=== PATIENT | male | born 1945 | race Two or more races ===

== ENCOUNTER 2024-12-18 20:35 | Emergency (ER) | payer OTHER ==
[~2024-12-18] VITALS: Ht 172.7 cm; Wt 92.0 kg
[2024-12-18] MEDS ORDERED: NITROGLYCERIN 0.4 MG SL TAB SL ONE (20:45)
[2024-12-18] MEDS ORDERED: ASPirin 325 MG TAB PO ONE (20:45)
--- NOTE | 2024-12-18 20:45 | ED.PDOC ---
HPI Comments HPI: 79 y/o M presents to the ED with CC of chest pain. Patient states that he has been experiencing intermittent sub-sternal chest pain x1 day with associated symptoms of shortness of breath. Patient describes chest pain to be tight and pressure like. Patient denies any social history. Patient denies fever, headache, numbness, tingling, or N/V/D. No new symptoms or modifying factors at this time. Initial Vitals: Temp:97.6 BP:167/56 HR:68 RR:16 O2 Sat.:95% Past Medical History: HTN, HLD, DM, CABG Past Surgical History: CABG Social History: Denies smoking, ETOH, and drug use Medication: Denies Allergies: NKDA NELSON HPI: Poor Historian. Past Medcial History: Past Surgical History: REVIEW OF SYSTEMS: CONSTITUTIONAL: Denies acute: fever, diaphoresis, chills, generalized weakness. HEAD: Denies acute: headache, photophobia Eyes: Denies acute: Double vision, vision loss, eye pain, eye discharge. EARS: Denies acute: tinnitus, hearing loss, ear discharge, ear pain, THROAT: Denies acute: sore throat, swelling, difficulty swallowing , pain with swallowing, change in voice. NECK: Denies acute: neck pain, neck swelling, stiff neck. HEART: Denies acute : palpitations, LUNGS: Denies acute: , wheezing, cough, hemoptysis ABDOMEN: Denies acute: abdominal pain, Nausea, Vomiting, diarrhea, melena , hematemesis, hematochezia SKIN: Denies acute: rash, redness, lesions, itchiness. EXTREMITIES: Denies acute: calf pain, numbness, tingling, weakness, denies pain in extremity. Denies acute: Low back pain. Neuro: Denies acute: focal neurological deficit, motor or sensory focal neurological deficit, tremors, seizure like activity, confusion, dizziness, change in mental status, loss of bowel or bladder function, cauda equina like symptoms. : Denies acute: dysuria, hematuria, flank pain, increase in urinary frequency. PSYCH: Denies acute: hallucination, suicidal ideation, homicidal ideation. PHYSICAL EXAM: General: no acute distress, awake and alert. Head: normocephalic, atraumatic. Neck: supple, trachea is midline, no swelling. Throat: Normal phonation. Eyes:, no erythema, no purulent discharge, no proptosis, no icterus. Heart: regular rate, regular rhythm, no significant murmur appreciated. Lungs: no apparent respiratory distress, Able to speak in full sentences. No wheezing, no rhonchi, no crackles. No stridors Clear to auscultation bilaterally. Abdomen: non tender to palpation, non distended, soft, no guarding, no rebound, + bowel sounds. Neuro: Awake, Alert, oriented to name, self, situation, follows commands GCS=15. Speech is normal. Skin: no petechia, no purpura, no cyanosis, slightly-pale, not jaundice. Lower extremities: -1/4- Pitting edema no deformity, no focal swelling, no calf TTP. Makes eye contact. moves all four extremities. Face: no apparent facial droop. Ambulating in the ED independently. - Chief Complaint: Chest Pain Time Seen by MD: 20:43 Allergies: Coded Allergies: Codeine (Verified Allergy, Unknown, 12/18/24) Information Source: Patient Mode of Arrival: Ambulatory Severity: Moderate Timing: Days Duration: Since onset Prehospital treatment: Other (ASPRIN) Location: Substernal Quality: Tightness Cardiac Risk Factors: None PE Risk Factors: None History of: None Associated Signs and Symptoms: None Was a procedure done? Was a procedure done?: No X-Ray, Labs, Meds, VS Vital Signs Date Time Temp Pulse Resp B/P (MAP) Pulse Ox O2 Delivery O2 Flow Rate FiO2 12/18/24 21:46 61 12/18/24 20:47 97.6 68 16 167/56 (93) 95 12/18/24 20:40 67 Lab Test 12/18/24 22:00 12/18/24 21:39 12/18/24 20:42 Range/Units Lactic Acid Level Pending Troponin I High Sensitivity Pending 9 </=54 ng/L White Blood Count 26.2 H 4.4-10.8 10^3/uL Red Blood Count 4.71 4.5-5.90 10^6/uL Hemoglobin 12.7 L 13.5-17.5 g/dL Hematocrit 38.9 L 41.0-53.0 % Mean Corpuscular Volume 82.6 80.0-100.0 fL Mean Corpuscular Hemoglobin 27.0 L 28.0-32.0 pg Mean Corpuscular Hemoglobin Concent 32.6 32.0-36.0 g/dL Red Cell Distribution Width 14.0 11.8-14.3 % Platelet Count 312 140-450 10^3/uL Mean Platelet Volume 7.5 6.9-10.8 fL Neutrophils (%) (Auto) 37.0-80.0 % Lymphocytes (%) (Auto) 10.0-50.0 % Monocytes (%) (Auto) 0.0-12.0 % Basophils (%) (Auto) 0.0-2.0 % Neutrophils # (Auto) 1.6-8.6 10 ^3/uL Lymphocytes # (Auto) 0.4-5.4 10 ^3/uL Monocytes # (Auto) 0-1.3 10 ^3/uL Differential Total Cells Counted 100.0 100 Neutrophils % (Manual) 70 37.0-80.0 Band Neutrophils % (Manual) 22 Lymphocytes % (Manual) 3 L 10.0-50.0 Monocytes % (Manual) 2 0-12 Eosinophils % (Manual) 1 0-7 Basophils % (Manual) 0 0.0-2.0 Metamyelocytes % (manual) 2 Myelocytes % (Manual) 0 Promyelocytes % (Manual) 0 Blast Cells % (Manual) 0 Reactive Lymphocytes 0 Platelet Estimate Adequate Sodium Level 135 L 136-145 mmol/L Potassium Level 4.4 3.5-5.1 mmol/L Chloride Level 101 98-107 mmol/L Carbon Dioxide Level 23 20-31 mmol/L Anion Gap 11 5-15 Blood Urea Nitrogen 22 9-23 mg/dL Creatinine 1.31 H 0.700-1.30 mg/dL Glomerular Filtration Rate Calc 56 >90 mL/min BUN/Creatinine Ratio 16.8 10.0-20.0 Serum Glucose 327 H 74-106 mg/dL Calcium Level 10.6 H 8.7-10.4 mg/dL Total Bilirubin 0.7 0.2-1.0 mg/dL Aspartate Amino Transferase (AST) 14 13-40 U/L Alanine Aminotransferase (ALT) 34 7-40 U/L Alkaline Phosphatase 55 46-116 U/L B-Type Natriuretic Peptide 704.58 0-100 pg/mL Total Protein 7.4 5.7-8.2 g/dL Albumin 5.2 H 3.2-4.8 g/dL [facility] [id number] [place] [id number] Ph: [phone] DIAGNOSTIC IMAGING Diagnostic Imaging Report : [id number] Signed PATIENT: SUSANNA DAMON ACCT: [id number] UNIT: [id number] : 1945 LOC: ER ROOM / BED: / AGE / SEX: 79 / M ADM STATUS: REG ER SERVICE 41 ORDERING PHYSICIAN: SON CARUSO DO PROCEDURE(s): CXRP - CHEST PORTABLE REASON: sob/cp ORDER NUMBER(s): [id number], ACCESSION NUMBER(s): [id number] CHEST RADIOGRAPH Indication: sob/cp Technique: Single frontal view of the chest was obtained Comparison: None FINDINGS: Lines and Tubes: Sternal wire sutures in place small vascular clips over the pericardium. Lungs: No focal consolidation. Pleura: No effusion. No pneumothorax. Cardiomediastinal contours: Unremarkable Bones: No acute osseous abnormality. IMPRESSION: 1. Sternal wire sutures in place. 2. Small surgical clips over the pericardium. ATED BY: IRIS SMITH Jr., DO DICTATED DATE/TIME: 12/18/242109 SIGNED BY: IRIS SMITH Jr., DO SIGNED DATE/TIME: 12/18/242109 CC: Time of 1ST Reevaluation: 21:23 Reevaluation 1ST: Unchanged Comments Patient presented with the above HPI.-- CHEST PAIN---workup was initiated. patient was found with the above mentioned diagnosis. the following medications were ordered: ASPRIN, NITRILE the following tests were ordered: LABS, EKG, CXR Patient ED course and VS have been stabilized. Patient has been reassessed in the ED and remained in a stable condition. Pertinent incidental findings were discussed with the patient and/or family. Patient/family voices understanding and is agreeable with plan. Patient has been observed in the ED adequate length of time to insure improvement/stability. Escalation of care considered: Consideration of escalation to observation or admission Patient was ADMITTED to the medicine team for further evaluation and treatment of their presentation. Patient was DISCHARGED home in a stable condition. All the reports of any imaging studies that Departure 1 Departure Time of Disposition: 21:49 Impression: Primary Impression: Chest pain Additional Impressions: Leukocytosis Dyspnea Disposition: ADMITTED INPATIENT Admit to: Tele Condition: Guarded Additional Instructions: [facility] [address] [facility] [address] Ph: [phone] DIAGNOSTIC IMAGING Diagnostic Imaging Report : [id number] Signed PATIENT: SUSANNA DAMON ACCT: [id number] UNIT: [id number] : 1945 LOC: ER ROOM / BED: / AGE / SEX: 79 / M ADM STATUS: REG ER SERVICE 41 ORDERING PHYSICIAN: SON CARUSO DO PROCEDURE(s): CXRP - CHEST PORTABLE REASON: sob/cp ORDER NUMBER(s): [id number], ACCESSION NUMBER(s): [id number] CHEST RADIOGRAPH Indication: sob/cp Technique: Single frontal view of the chest was obtained Comparison: None FINDINGS: Lines and Tubes: Sternal wire sutures in place small vascular clips over the pericardium. Lungs: No focal consolidation. Pleura: No effusion. No pneumothorax. Cardiomediastinal contours: Unremarkable Bones: No acute osseous abnormality. IMPRESSION: 1. Sternal wire sutures in place. 2. Small surgical clips over the pericardium. ATED BY: IRIS SMITH Jr., DO DICTATED DATE/TIME: 12/18/242109 SIGNED BY: IRIS SMITH Jr., DO SIGNED DATE/TIME: 12/18/242109 CC: Discharged With: Self Stability Stability form required: No I personally scribed for SON CARUSO DO ([email or web address]) on 12/18/24 at 20:45. Electronically submitted by Jennifer Berrios ([email or web address]). I personally scribed for SON CARUSO DO ([email or web address]) on 12/18/24 at 21:13. Electronically submitted by Jennifer Berrios ([email or web address]). I personally scribed for SON CARUSO DO ([email or web address]) on 12/18/24 at 21:14. Electronically submitted by Jennifer Berrios ([email or web address]). I personally scribed for SON CARUSO DO ([email or web address]) on 12/18/24 at 22:16. Electronically submitted by Jennifer Berrios ([email or web address]). SON CARUSO DO Dec 18, 2024 20:45
[2024-12-18 20:47] VITALS: BP 167/56; RESP 16; O2SAT 95
[2024-12-18 20:55] LABS: Hemoglobin 12.7 g/dL (13.5-17.5); Mean Corpuscular Hgb Conc. 32.6 g/dL (32.0-36.0); Mean Corpuscular Volume 82.6 fL (80.0-100.0)
[2024-12-18 20:56] LABS: Hematocrit 38.9 % (41.0-53.0); Platelet Count (auto) 312 10^3/uL (140-450); Red Blood Cells 4.71 10^6/uL (4.5-5.90); White Blood Cell 26.2 10^3/uL (4.4-10.8)
[2024-12-18 21:01] LABS: Basophils % (manual) 0 (0.0-2.0)
[2024-12-18 21:02] LABS: Blast Cells 0; Myelocytes % 0; Promyelocytes % 0; Reactive Lymphocytes 0
--- NOTE | 2024-12-18 21:12 | DVH ---
CHEST RADIOGRAPH Indication: sob/cp Technique: Single frontal view of the chest was obtained Comparison: None FINDINGS: Lines and Tubes: Sternal wire sutures in place small vascular clips over the pericardium. Lungs: No focal consolidation. Pleura: No effusion. No pneumothorax. Cardiomediastinal contours: Unremarkable Bones: No acute osseous abnormality. IMPRESSION: 1. Sternal wire sutures in place. 2. Small surgical clips over the pericardium.
[2024-12-18 21:19] LABS: Alanine Aminotransferase 34 U/L (7-40); Alkaline Phosphatase 55 U/L (46-116); Anion Gap 11 (5-15); Aspartate Aminotransferase 14 U/L (13-40); BUN/Creatinine Ratio 16.8 (10.0-20.0); Bilirubin, Total 0.7 mg/dL (0.2-1.0); Blood Urea Nitrogen 22 mg/dL (9-23); Carbon Dioxide 23 mmol/L (20-31); Chloride 101 mmol/L (98-107); Potassium 4.4 mmol/L (3.5-5.1); Total Protein 7.4 g/dL (5.7-8.2)
[2024-12-18 21:25] LABS: Albumin 5.2 g/dL (3.2-4.8); Calcium 10.6 mg/dL (8.7-10.4); Glucose 327 mg/dL (74-106); Sodium 135 mmol/L (136-145)
[2024-12-18 21:39] LABS: Band Neutrophils % (manual) 22; Eosinophils % (manual) 1 (0-7); Lymphocytes % (manual) 3 (10.0-50.0); Metamyelocytes % 2; Monocytes % (manual) 2 (0-12); Platelet Estimate Adequate
[2024-12-18 21:46] VITALS: PULSE 61
[2024-12-18] MEDS ORDERED: cefTRIAXone 1GM/50ML D5W 50 ML IV ONE (23:15)
[2024-12-18 23:19] LABS: Lactic Acid w/Reflex 3.7 mmol/L (0.4-2.0)
[2024-12-18] MEDS ORDERED: SODIUM CHLORIDE 0.9% 1,000 ML IV ONE (23:30)
--- NOTE | 2024-12-19 06:07 | ECG ---
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
--- NOTE | 2024-12-20 09:36 | ECG ---
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
== END 2024-12-18 23:41 | disposition left against medical advice (07) ==
LOC: ER 20:35
DX: R06.00 Dyspnea, unspecified (principal); R07.89 Other chest pain; D72.829 Elevated white blood cell count, unspecified; I10 Essential (primary) hypertension; E78.5 Hyperlipidemia, unspecified; E11.9 Type 2 diabetes mellitus without complications; Z88.8 Allergy status to other drugs, medicaments and biological substances; Z98.890 Other specified postprocedural states
CPT/HCPCS: 36415; 71045; 80053; 83605; 83880; 84484; 85007; 85027; 87040; 93005